=== PATIENT | female | born 1965 | race Two or more races ===

== ENCOUNTER 2024-10-05 05:26 | Day surgery (SDC) | payer OTHER ==
[2024-10-02 14:14] VITALS: BP 108/75
[~2024-10-05] VITALS: Ht 165.1 cm; Wt 64.9 kg
[~2024-10-05 05:26] MED LIST: D3-200050 MCG PO; MELATONIN3 MG PO; ZESTRIL5 MG PO
[2024-10-05] MEDS ORDERED: BUPIVACAINE HCL/MPF 0.5% 30ML VIAL ONE (07:14)
[2024-10-05] MEDS ORDERED: LIDOCAINE HCL 1%/EPINEPHRINE 20ML VIAL IJ ONE (07:15)
[2024-10-05] MEDS ORDERED: HEPARIN SODIUM,PORCINE/PF 100 UNIT/ML SYRINGE IV ONE (07:15)
[2024-10-05] MEDS ORDERED: CEFAZOLIN SODIUM 1,000 MG VIAL ONE (07:15)
[2024-10-05] MEDS ORDERED: TRAM1TAB98 PO (08:46)
== END 2024-10-05 10:15 | disposition home or self-care (01) ==
LOC: CIR.AMB 05:26
PROVIDERS: ATTEND Surgery
DX: C50.112 Malignant neoplasm of central portion of left female breast (principal)
CPT/HCPCS: 36561; C1751